=== PATIENT | male | born 1975 | race Caucasian/White ===

== ENCOUNTER 2016-07-18 07:34 | Day surgery (SDC) | payer OTHER ==
[~2016-07-18] VITALS: Ht 170.2 cm; Wt 71.4 kg
[2016-07-18 07:52] VITALS: BP 166/94; PULSE 69; RESP 20; TEMP 97.5; O2SAT 99
[2016-07-18] MEDS ORDERED: ALLO100T PO (08:08)
[2016-07-18] MEDS ORDERED: CALC1CAP PO (08:08)
[2016-07-18] MEDS ORDERED: AMLO10TA2 PO (08:08)
[2016-07-18] MEDS ORDERED: HYDR25TA35 PO (08:13)
[2016-07-18] MEDS ORDERED: VITACAP7 PO (08:13)
[2016-07-18] MEDS ORDERED: CHOL1TAB29 (08:13)
[2016-07-18] MEDS ORDERED: SODIUM CHLORIDE FLUSH PRN IVF (08:15)
[2016-07-18 08:34] LABS: BICARBONATE 24.4 MEQ/L (21.0-32.0); POTASSIUM 4.1 MEQ/L (3.5-5.1)
[2016-07-18] MEDS ORDERED: MIDAZOLAM HCL 5 MG/5 ML VIAL ONE (08:42)
[2016-07-18] MEDS ORDERED: fentaNYL CITRATE 250 MCG/5 ML AMP ONE (08:43)
[2016-07-18] MEDS ORDERED: SODIUM CHLORIDE FLUSH BID IVF SCH (09:00)
--- NOTE | 2016-07-18 09:20 | PD.RAD ---
Post CT Procedure Prog Note Pre Procedure Diagnosis: (1) Peritoneal dialysis catheter dysfunction Post Procedure Diagnosis: (1) Peritoneal dialysis catheter dysfunction Procedure Date: Jul 18, 2016 Supervising Radiologist: Bran Serrano Anesthesia: Analgesia Plan of Activity Patient to Unit: [facility] Patient Condition: Good Additional Comments: PD catheter evaluated. The catheter is in the right upper quadrant. Contrast flows freely from the catheter. The catheter empties normally. The patients abdominal pain is predominately in the right lower quadrant. See PACS Report for procedural detail/treatment Bran Serrano MD Jul 18, 2016 09:20
[2016-07-18 09:30] VITALS: BP 140/84; PULSE 72; RESP 18; TEMP 97.8; O2SAT 97
[2016-07-18 09:45] VITALS: BP 137/77; PULSE 72; RESP 18; O2SAT 97
[2016-07-18] MEDS ORDERED: IOHEXOL 350 MG/ML 50 ML BTL (for RAD DIAG) ONE (09:48)
[2016-07-18] MEDS ORDERED: DIATRIZOATE MEGLUM/DIATRIZOATE SOD 9 ML CUP ONE (09:51)
[2016-07-18 10:10] LABS: AUTOMATED NEUTROPHIL # 2.7 TH/MM3 (1.8-7.7); BASOPHIL # 0.1 TH/MM3 (0-0.2); BASOPHIL % 2.4 % (0.0-2.0); EOSINOPHIL # 0.2 TH/MM3 (0-0.4); EOSINOPHIL % 4.1 % (0.0-4.0); HEMATOCRIT 25.5 % (39.0-51.0); HEMO FLAGS DIFF FINAL; LYMPH % 24.6 % (9.0-44.0); LYMPHOCYTE # 1.1 TH/MM3 (1.0-4.8); MEAN CELL VOLUME 84.8 FL (80.0-100.0); MEAN CORPUSCULAR HEMOGLOBIN 29.2 PG (27.0-34.0); MEAN CORPUSCULAR HGB CONC 34.4 % (32.0-36.0); MONO % 7.3 % (0.0-8.0); NEUT % 61.6 % (16.0-70.0); PLATELET COUNT 201 TH/MM3 (150-450); RED CELL DISTRIBUTION WIDTH 13.4 % (11.6-17.2); WHITE BLOOD COUNT 4.4 TH/MM3 (4.0-11.0)
[2016-07-18 10:15] VITALS: BP 153/85; PULSE 73; RESP 16; O2SAT 99
[2016-07-18 10:45] VITALS: BP 128/83; PULSE 68; RESP 18; O2SAT 99
[2016-07-18] MEDS ORDERED: DIATRIZOATE MEGLUM/DIATRIZOATE SOD 9 ML CUP PO ONE (10:45)
--- NOTE | 2016-07-18 11:32 | RADRPT ---
EXAM DATE/TIME: 07/18/2016 11:00 [facility] COMPARISON: No previous studies available for comparison. INDICATIONS : Abdominal pain after dialysis. ORAL CONTRAST: Prescribed oral contrast ingested. RADIATION DOSE: 9.96 CTDIvol (mGy) MEDICAL HISTORY : Hypertension. Renal failure, chronic. SURGICAL HISTORY : None. ENCOUNTER: Initial ACUITY: 1 week PAIN SCALE: 6/10 LOCATION: Right lower quadrant TECHNIQUE: Volumetric scanning of the abdomen and pelvis was performed. Using automated exposure control and ad justment of the mA and/or kV according to patient size, radiation dose was kept as low as reasonably achievable to obtain optimal diagnostic quality images. FINDINGS: The limited portion of the lung base visualized is clear. The appearance of the liver, spleen, pancreas and adrenal glands is within normal limits. The kidneys are atrophic bilaterally. There is no free intraperitoneal air. No free intraperitoneal fluid is identified. There is no retrop eritoneal lymphadenopathy. The aorta is normal in caliber. The visualized loops of small and large bowel demonstrate a moderate amount of stool within the colon but are otherwise unremarkable. Note is made of the patient's Tenckhoff catheter which is in the rig ht side the peritoneal cavity. The catheter is unremarkable in appearance. All of the previously plac ed contrast within the peritoneal cavity has drained. There is no free fluid within the pelvis. No iliac or inguinal adenopathy is seen. The contours of th e bladder are unremarkable. The visualized bony structures demonstrate mild degenerative changes but are otherwise intact. CONCLUSION: 1. There is a moderate amount of stool within the colon. A CT scan of the abdomen and pelvis is other jeter within normal limits. 2. The Tenckhoff catheter is unremarkable in appearance. Bran Serrano MD on July 18, 2016 at 11:19 Board Certified Radiologist. This report was verified electronically.
--- NOTE | 2016-07-18 15:52 | RADRPT ---
EXAM DATE/TIME: 07/18/2016 08:56 [facility] COMPARISON: No previous studies available for comparison. INDICATIONS : Patient with history of end stage renal disease in need of evaluation of peritoneal catheter. MEDICAL HISTORY : 1.ESRD 2.Anemia 3.HTN 4.Hyperuricemia SURGICAL HISTORY : 1.PD catheter ENCOUNTER: Initial ACUITY: 1 month PAIN SCORE: 7/10 Right Lower abdomen FLUORO TIME: 1.1 minutes MEDICATION(S): 1.) 100 mcg fentanyl (Sublimaze) IV PROCEDURE : 1. Tenckhoff catheter evaluation. The risks, benefits and alternatives to the procedure were explained and verbal and written consent w as obtained. The site was prepped in sterile fashion. Full sterile technique was used, including ca p, mask, sterile gloves and gown and a large sterile sheet. Hand hygiene and 2% chlorhexidine and/or betadine/alcohol prep was utilized per protocol for cutaneous antisepsis. A The patient's catheter was accessed using sterile technique. Approximately 25 cc of dilute contrast w as instilled. There was free spread of contrast into the peritoneal cavity. At the conclusion of the procedure the fluid immediately drained from the catheter. The catheter is located in the right upper quadrant of the abdomen. The patient states his predominan t pain symptoms are in the right lower quadrant. CONCLUSION: 1. The Tenckhoff catheter is in the right upper quadrant. There is free flow of contrast away from th e catheter with injection. Bran Serrano MD on July 18, 2016 at 15:49 Board Certified Radiologist. This report was verified electronically.
== END 2016-07-18 11:45 | disposition home or self-care (01) ==
LOC: HROP 07:34 → HRIP 07:35 → HROP 11:45
PROVIDERS: ATTEND Internal Medicine Nephrology
DX: T85.611A Breakdown (mechanical) of intraperitoneal dialysis catheter, initial encounter (principal); N18.6 End stage renal disease; I12.0 Hypertensive chronic kidney disease with stage 5 chronic kidney disease or end stage renal disease; Y81.2 Prosthetic and other implants, materials and accessory general- and plastic-surgery devices associated with adverse incidents; Z99.2 Dependence on renal dialysis
CPT/HCPCS: 49400; 74176; 74190; 80048; 85025; J2250; J3010; Q9963; Q9967

== ENCOUNTER → 2017-10-10 | Outpatient (CLI) | payer MEDICARE ==
[~2017-10-10] MED LIST: ALLO100T PO; AMINOPHYLLINE INJ 500 MG/20 ML VIAL ONE; AMLO10TA2 PO; CALC1CAP PO; CHOL1TAB29; HYDR25TA35 PO; REGADENOSON INJ 0.4 MG/5 ML SYR ONE; VITACAP7 PO
--- NOTE | 2017-10-10 09:22 | RADRPT ---
EXAM DATE/TIME: 10/10/2017 08:46 [facility] COMPARISON: No previous studies available for comparison. INDICATIONS : Preop kidney transplant. MEDICAL HISTORY : Hypertension. Renal failure. GOUT. SURGICAL HISTORY : Peritoneal dialysis catheter insertion. ENCOUNTER: Initial ACUITY: > 1 year PAIN SCORE: 0/10 LOCATION: Bilateral flank MEASUREMENTS: RIGHT KIDNEY: 6.7 x 2.8 x 2.7 cm LEFT KIDNEY: 5.5 x 2.2 x 3.0 cm FINDINGS: RIGHT KIDNEY: Tiny echogenic kidney. No evidence of hydronephrosis. LEFT KIDNEY: Tiny echogenic kidney. No evidence of hydronephrosis. BLADDER: Within normal limits given the degree of distension. CONCLUSION: End-stage kidney appearance. No acute findings. Juan R Guillen MD on October 10, 2017 at 9:19 Board Certified Radiologist. This report was verified electronically.
--- NOTE | 2017-10-10 10:44 | RADRPT ---
EXAM DATE/TIME: 10/10/2017 09:00 [facility] COMPARISON: No previous studies available for comparison. INDICATIONS : End stage renal disease, renal transplant. DOSE: 25.9 mCi Tc99m Myoview at stress. 8.5 mCi Tc99m Myoview at rest. 0.4 mg Lexiscan STRESS SYMPTOMS: Shortness of breath, chest pressure. MEDICATIONS: 1.) 100 mg Aminophylline IV EJECTION FRACTION: 62% MEDICAL HISTORY : Hypertension. SURGICAL HISTORY : Peritoneal shunt. ENCOUNTER: Initial ACUITY: 1 day PAIN SCALE: 0/10 LOCATION: chest TECHNIQUE: The patient underwent pharmacologic stress with infusion of prescribed dose. Continuous ECG tracing was monitored during stress. Gated SPECT imaging was performed after stress and conventional SPECT i maging was performed at rest. The examination was performed on a SPECT/CT scanner, both attenuation and non-corrected datasets were reviewed. FINDINGS: DISTRIBUTION: The maximum perfused segment at stress is in the lateral wall. PERFUSION STUDY: The pattern of perfusion at stress is within normal limits. GATED STUDY: There is intact wall motion and thickening without hypokinetic or dyskinetic segments. CONCLUSION: Unremarkable myocardial perfusion examination. RISK CATEGORY: Low Roberto Carlos Stephenson MD on October 10, 2017 at 10:41 Board Certified Radiologist. This report was verified electronically.
--- NOTE | 2017-10-10 11:42 | RADRPT ---
EXAM DATE/TIME: 10/10/2017 10:26 [facility] COMPARISON: CT ABDOMEN & PELVIS W/O CONTRAST, July 18, 2016, 11:00. INDICATIONS : End stage renal disease. ORAL CONTRAST: No oral contrast ingested. RADIATION DOSE: 6.64 CTDIvol (mGy) MEDICAL HISTORY : Renal failure, chronic. SURGICAL HISTORY : Peritoneal dialysis. ENCOUNTER: Initial ACUITY: 1 day PAIN SCALE: 0/10 LOCATION: abdomen TECHNIQUE: Volumetric scanning of the abdomen and pelvis was performed. Using automated exposure control and ad justment of the mA and/or kV according to patient size, radiation dose was kept as low as reasonably achievable to obtain optimal diagnostic quality images. DICOM format image data is available electro nically for review and comparison. The lack of IV contrast limits the diagnosis for certain organ pa thology. FINDINGS: LOWER LUNGS: The visualized lower lungs are clear. LIVER: Homogeneous density without lesion. There is no dilation of the biliary tree. No calcified gallston es. SPLEEN: Normal size without lesion. PANCREAS: Within normal limits. KIDNEYS: The kidneys are both diffusely atrophic. There is no hydronephrosis. No significant change compared t o the prior study. ADRENAL GLANDS: Within normal limits. VASCULAR: There is no aortic aneurysm. BOWEL/MESENTERY: The stomach, small bowel, and colon demonstrate no acute abnormality. There is no free intraperitone al air. There is a dialysis catheter positions in the deep lower pelvis. There is a small amount of f luid in the lower pelvis. ABDOMINAL WALL: Within normal limits. RETROPERITONEUM: There is no lymphadenopathy. BLADDER: No wall thickening or mass. REPRODUCTIVE: Within normal limits. INGUINAL: There is no lymphadenopathy or hernia. MUSCULOSKELETAL: Within normal limits for patient age. CONCLUSION: 1. There is a dialysis catheter positioned in the deep lower pelvis. There is a small amount of fluid around the dialysis catheter. 2. Otherwise, unremarkable and stable CT abdomen and pelvis compared to the prior study. Roberto Carlos Stephenson MD on October 10, 2017 at 11:38 Board Certified Radiologist. This report was verified electronically.
--- NOTE | 2017-10-10 13:57 | ECHRPT ---
Indication: End stage renal disease CONCLUSIONS The left ventricular systolic function is normal with an estimated ejection fraction of 55%. Normal wall motion. Wall thickness is normal. Normal left ventricular size. Trace aortic valve regurgitation. There is trace tricuspid valve regurgitation. BP: / HR: Rhythm: Sinus MEASUREMENTS (Male / Female) Normal Values Technical Quality:Good 2D ECHO LV Diastolic Diameter PLAX 4.8 cm 4.2 - 5.9 / 3.9 - 5.3 cm LV Systolic Diameter PLAX 3.5 cm IVS Diastolic Thickness 1.1 cm 0.6 - 1.0 / 0.6 - 0.9 cm LVPW Diastolic Thickness 1.1 cm 0.6 - 1.0 / 0.6 - 0.9 cm LV Relative Wall Thickness 0.5 LVOT Diameter 2.1 cm M-MODE Aortic Root Diameter MM 3.1 cm LA Systolic Diameter MM 3.3 cm LA Ao Ratio MM 1.1 AV Cusp Separation MM 2.4 cm DOPPLER AV Peak Velocity 118.0 cm/s AV Peak Gradient 5.6 mmHg AI Peak Velocity 410.0 cm/s AI Peak Gradient 67.2 mmHg AI Pressure Half Time 1038.5 ms LVOT Peak Velocity 93.3 cm/s LVOT Peak Gradient 3.5 mmHg AV Area Cont Eq pk 2.7 cm MR Peak Velocity 295.5 cm/s MR Peak Gradient 34.9 mmHg Mitral E Point Velocity 108.0 cm/s Mitral A Point Velocity 33.6 cm/s Mitral E to A Ratio 3.2 LV E' Lateral Velocity 10.4 cm/s Mitral E to LV E' Lateral Ratio 10.4 LV E' Septal Velocity 7.3 cm/s Mitral E to LV E' Septal Ratio 14.8 TR Peak Velocity 290.0 cm/s TR Peak Gradient 33.6 mmHg Right Atrial Pressure 10.0 mmHg Pulmonary Artery Systolic Pressu 43.6 mmHg Right Ventricular Systolic Press 43.6 mmHg PV Peak Velocity 95.0 cm/s PV Peak Gradient 3.6 mmHg FINDINGS LEFT VENTRICLE The left ventricular systolic function is normal with an estimated ejection fraction of 55%. Normal wall motion. Wall thickness is normal. Normal left ventricular size. RIGHT VENTRICLE Normal right ventricular size and systolic function. LEFT ATRIUM The left atrial size is normal. RIGHT ATRIUM The right atrial size is normal. ATRIAL SEPTUM Normal atrial septal thickness without atrial level shunting by limited color doppler interrogation. AORTA The aortic root and proximal ascending aorta are normal in size on limited imaging. MITRAL VALVE Structurally normal mitral valve. No mitral valve stenosis or regurgitation. AORTIC VALVE Trace aortic valve regurgitation. TRICUSPID VALVE There is trace tricuspid valve regurgitation. PULMONARY VALVE No pulmonary valve regurgitation or stenosis. VESSELS The inferior vena cava is normal in size. PERICARDIUM No pericardial effusion. Hermilo Castellanos MD (Electronically Signed) Final Date:10 October 2017 13:56
== END ==
LOC: HRAD 07:22 → EDSTATUS 08:00
PROVIDERS: ATTEND Surgery
DX: N18.6 End stage renal disease (principal); I35.1 Nonrheumatic aortic (valve) insufficiency; I36.1 Nonrheumatic tricuspid (valve) insufficiency; I12.0 Hypertensive chronic kidney disease with stage 5 chronic kidney disease or end stage renal disease; Z99.2 Dependence on renal dialysis; Z79.899 Other long term (current) drug therapy
CPT/HCPCS: 74176; 76775; 78452; 93017; 93306; A9502; J0280; J2785